=== PATIENT | female | born 1980 | race Caucasian/White ===

== ENCOUNTER 2025-01-28 07:00 | Day surgery (SDC) | payer OTHER ==
[2025-01-22 09:51] LABS: BASO % 0.2 % (0.1-1.2); EOS # 0.02 (0.04-0.54); EOS % 0.4 % (0.7-7.0); LYMPH # 1.68 (1.18-3.74); LYMPH % 32.6 % (19.3-53.1); MEAN PLATELET VOLUME 9.60 fl (9.4-12.4); MONO # 0.33 (0.24-0.82); MONO % 6.4 % (4.7-12.5); NEUT # 3.10 (1.56-6.13); NEUT % 60.2 % (34.0-71.1); RED CELL DISTRIBUTION WIDTH 16.2 % (11.6-14.4)
[2025-01-22 09:54] LABS: URINE APPEARANCE Cloudy; URINE BILIRRUBIN Negative (NEGATIVE); URINE BLOOD Negative; URINE COLOR Yellow; URINE GLUCOSE Negative (NEGATIVE); URINE KETONE Trace (NEGATIVE); URINE LEUKOCYTE Moderate; URINE NITRATE Negative; URINE PROTEIN Negative (NEGATIVE); URINE UROBILINOGEN 0.2 E.U./dl
[2025-01-22 09:59] LABS: URINE BACTERIA 5180.4 uL (0.0-1933); URINE EPITHELIAL CELLS 106.6 uL (0.0-38.8); URINE RBC 3.3 uL (0.0-20.8); URINE WBC 116.4 uL (0.0-23.2)
[2025-01-22 10:03] VITALS: BP 117/78
[2025-01-22 10:19] LABS: INR 0.97
[2025-01-22 10:38] LABS: ALT/SGPT 16.0 U/L (12-78); AST/SGOT 13.0 U/L (15-37); BILIRUBIN TOTAL 0.85 mg/dL (0.3-1.2); BUN CREA RATIO 9.0 (7.0-25.0); CREATININE SERUM 0.81 mg/dL (0.55-1.02); GFR 76.81; GLOBULINA 3.4 G/DL (2.4-3.5); GLUCOSE FASTING 89.0 mg/dL (65-100); OSMOLALITY SERUM 281.0 MOSM/KG (275-295)
[2025-01-22 10:45] LABS: URINE CAST 0.00 uL (0.0-1.40)
[~2025-01-28] VITALS: Ht 160 cm; Wt 57.6 kg
[2025-01-28] MEDS ORDERED: POVIDONE-IODINE 118 ML BOTT TOP ONE (09:05)
[2025-01-28] MEDS ORDERED: CEFAZOLIN SODIUM 1,000 MG VIAL IV ONE (09:30)
[2025-01-28] MEDS ORDERED: POVIDONE-IODINE SCRUB 118 ML BOTT TOP ONE (09:30)
[2025-01-28] MEDS ORDERED: SUGAMMADEX SODIUM 200 MG/2 ML VIAL IV ONE (10:18)
[2025-01-28] MEDS ORDERED: DOXYCYCLINE HY100 M2 PO (12:41)
[2025-01-28] MEDS ORDERED: IBU600 MG PO (12:42)
== END 2025-01-28 14:20 | disposition home or self-care (01) ==
LOC: CIR.AMB 07:00
PROVIDERS: ATTEND Obstetrics & Gynecology
DX: D25.0 Submucous leiomyoma of uterus (principal); N95.0 Postmenopausal bleeding; N84.0 Polyp of corpus uteri